=== PATIENT | male | born 1965 | race Caucasian/White ===

== ENCOUNTER 2018-02-06 22:12 | Emergency (ER) | payer OTHER ==
[2018-02-06 22:35] VITALS: RESP 18; TEMP 98.8
[2018-02-06 22:40] LABS: APPEARANCE,URINE Slightly Cloudy; BILIRUBIN,URINE NEGATIVE (NEGATIVE); COLOR,URINE Yellow; GLUCOSE, URINE (UA) NEGATIVE (NEGATIVE); KETONES,URINE NEGATIVE (NEGATIVE); LEUKOCYTE ESTERASE ,URINE NEGATIVE (NEGATIVE); NITRATE,URINE NEGATIVE (NEGATIVE); OCCULT BLOOD,URINE NEGATIVE (NEG-TRACE); UROBILINOGEN,URINE 0.2 (0.2-1.0 EU)
[2018-02-06 22:53] LABS: BASOPHILS % (AUTO) 0 % (0-3); EOSINOPHILS % (AUTO) 0 % (0-9); HEMATOCRIT 45 % (39-53); HEMOGLOBIN 15.3 gm/dl (13.5-17.7); LYMPHOCYTES % (AUTO) 5.7 % (10-50); MEAN CORPUSCULAR HEMOGLOBIN 29.7 pg (27.0-32.0); MEAN CORPUSCULAR VOLUME 87 fL (80-100); MONOCYTES % (AUTO) 6.9 % (0-12)
[2018-02-06] MEDS ORDERED: KETOROLAC TROMETHAMINE 30 MG/ML SOL IV ONE (22:57)
[2018-02-06] MEDS ORDERED: SODIUM CHLORIDE 0.9% 1000ML 1,000 ML IV ONE (22:58)
[2018-02-06 23:01] LABS: BACTERIA RARE (< 1+); CRYSTALS NEGATIVE (0-3 AVE/HPF); EPITHELIAL CELLS 0-1 (SQUAMOUS); RBC,URINE NEG (0-3AV/HPF); WBC,URINE 0-2 (0-5AV/HPF)
[2018-02-06] MEDS ORDERED: KETOROLAC TROMETHAMINE 30 MG/ML SOL ONE (23:01)
[2018-02-06 23:07] LABS: CREATININE 1.09 mg/dl (0.80-1.30); POTASSIUM 3.7 mMol/L (3.5-5.1)
[2018-02-06] MEDS ORDERED: DIAZEPAM 5MG/ML SOL IV ONE (23:29)
[2018-02-06] MEDS ORDERED: SOLUMEDROL 125 MG/2 ML 125 MG/2 ML PDS IV ONE (23:29)
[2018-02-06] MEDS ORDERED: SOLUMEDROL 125 MG/2 ML 125 MG/2 ML PDS ONE (23:32)
[2018-02-06] MEDS ORDERED: DIAZEPAM 5 MG TAB PO ONE (23:42)
[2018-02-06] MEDS ORDERED: DIAZEPAM 5 MG TAB ONE (23:45)
[2018-02-07 00:05] VITALS: BP 127/83; PULSE 76; O2SAT 98
== END 2018-02-07 00:02 | disposition home or self-care (01) ==
LOC: ED 22:12
DX: M54.5 Low back pain (principal)
CPT/HCPCS: 80048; 81001; 85025; 96365; 96374; 96375; 99283; J1885; J2930; A9270-GY